=== PATIENT | male | born 1940 | race Caucasian/White ===

== ENCOUNTER → 2020-07-23 09:46 | Outpatient (BNVA) | payer MEDICARE, SELFPAY | PROVIDERS: PCP Internal Medicine; Visit Provider Urology | DX: N40.1 Benign prostatic hyperplasia with lower urinary tract symptoms (principal); N13.8 Other obstructive and reflux uropathy; R39.12 Poor urinary stream; Z79.899 Other long term (current) drug therapy | CPT/HCPCS: 81002; Q3014 ==

== ENCOUNTER → 2021-12-03 11:10 | Outpatient (BNVA) | payer MEDICARE, SELFPAY | PROVIDERS: PCP Internal Medicine; Visit Provider Urology | DX: N40.1 Benign prostatic hyperplasia with lower urinary tract symptoms (principal); N43.40 Spermatocele of epididymis, unspecified | CPT/HCPCS: 51798; 99212 ==

== ENCOUNTER → 2023-03-01 08:38 | Outpatient (BNVA) | payer MEDICARE, SELFPAY | PROVIDERS: Visit Provider Urology | DX: N40.1 Benign prostatic hyperplasia with lower urinary tract symptoms (principal); N13.8 Other obstructive and reflux uropathy; R39.12 Poor urinary stream; Z79.899 Other long term (current) drug therapy | CPT/HCPCS: 51798; 99212 ==

== ENCOUNTER 2024-02-28 08:08 | Outpatient (AMB) | payer MEDICARE, SELFPAY ==
--- NOTE | 2024-02-28 08:18 | A.OFFVIS_ITS ---
Intake Visit Reasons: 1y/PVR Intake Note: * Patient presents today for a 1yr follow-up with PVR * Meds- Finasteride * Allergies to Antibiotic- None * Blood Thinner- None * PVR- 20ml Retirement Officer Required: No Accompanied by: Self / Same As Patient Allergies No Known Allergies Allergy (Verified 02/28/24 08:18) Medication List - Last Reconciled 02/28/24 by Panchito Barreto MD atorvastatin mg PO betamethasone dipropionate 0.05% topical BID PRN finasteride 5 mg PO DAILY 90 days ibuprofen 800 mg PO TID lisinopril 30 mg PO DAILY metoprolol succinate ER 50 mg PO DAILY rivaroxaban 20 mg PO BEDTIME HPI Comments Details: Oskar is a pleasant [place] gentleman. He is a patient of Dr. Reynolds. He is seen for the following urologic conditions - lower urinary tract symptoms PVR remains low Effective bladder emptying Nocturia x1 depending on fluid intake Says he is still working Has been stable for a number of years May follow with primary care and if there is any further urologic condition can give us a call Refill finasteride Prostate/Bladder: Stable Doing well on finasteride alone. Benign prostatic hyperplasia (BPH) was diagnosed Many years . Current symptoms include Minimal . Severity of the symptoms is 3 out of 10. Associated symptoms include Associated illnesses include CAD, dyslipidemia and hypertension. . Recent labs included a PSA (prostate-specific antigen) July 2014 0.6. Investigative studies included TURP performed December 2011. Testicular/Scotal spermatocele: Imaging includes December 2015 testicular ultrasound showing right-sided spermatocele. Based on imaging and exam diagnosis is most consistent with a spermatocele, on right side. Current symptoms include none Review of Systems Const Denies chills and Denies fever(s) Card Reports no additional complaints and Denies syncope Resp Denies cough GI Denies abdominal pain and Denies heartburn Reports as per HPI and Denies change in libido Neuro Denies syncope Psych Denies change in libido Endo Denies change in libido Physical Exam Const General: cooperative, healthy appearing, comfortable and no acute distress Orientation/consciousness: patient oriented x3 HEENT Face and sinus: Yes normal facial exam Mouth: moist mucous membranes Neck Neck: Yes normal visual inspection, Yes full ROM and Yes trachea midline Chest Chest palpation & inspection: normal inspection of the chest Resp Effort & Inspection: normal respiratory effort, able to speak in complete sentences and no respiratory distress GI Inspection: Yes normal to inspection Back/Spine/Pelvis Cervical Spine: normal cervical lordosis Thoracic/Lumbar Spine: thoracic and lumbar spine normal to inspection Skin General skin exam: no rashes or lesions noted Neuro General: patient oriented x3, gait normal, tone normal and moves all extremities Extrem General: Yes normal to inspection and Yes capillary refill normal Office Procedures Post Void Residual Post Residual Void Post Void Residual (PVR): 20 [id number] Void Residual by ultrasound Assessment & Plan Assessment & Plan (1) BPH loc w urin obs/LUTS: Comment: Prior TURP 2011, response to finasteride currently, last PSA 2014 0.6 Code(s): N40.1 - Benign prostatic hyperplasia with lower urinary tract symptoms Category: Medical Plan P.r.n. follow-up Orders: Orders AMB Post Void Residual by ultrasound Today N40.1 - Benign prostatic hyperplasia with lower urinary tract symptoms Patient Instructions: Imaging studies, laboratory and physical exam results were discussed and reviewed in detail. No major barriers to patient understanding were identified. An opportunity to ask questions regarding the treatment plan was provided. All questions were answered. The patient expressed understanding and agreement with the above treatment plan. The patient is aware they should contact our office by phone for worsening of their current condition or the appearance of new urologic symptoms. Compliance is encouraged with any medications and followup testing that is ordered. It is a privilege to participate in the urologic care of your patient. If you have any questions or concerns regarding treatment for the above conditions, or other urologic issues, please do not hesitate to contact me. The office telephone contact is [phone]. This note is constructed using voice recognition software. While every effort has been made to ensure accuracy telemarketing supervisor errors may have been included. Yours sincerely, Dr Panchito Barreto MD, [facility] - Urology Providers of Expert, Compassionate Care for the Genitourinary System Coding Level of Care Code Est Pt Level 4 (80818) Diagnoses BPH loc w urin obs/LUTS N40.1 CPT Codes Post Residual Void - PVR CPT Code: [id number] Void Residual by ultrasound ([id number])
== END 2024-02-28 08:54 | disposition home or self-care (01) ==
PROVIDERS: PCP Internal Medicine; Visit Provider Urology
DX: N40.1 Benign prostatic hyperplasia with lower urinary tract symptoms (principal)
CPT/HCPCS: 99213

== ENCOUNTER → 2024-02-28 08:08 | Outpatient (BNVA) | payer MEDICARE, SELFPAY | PROVIDERS: PCP Internal Medicine; Visit Provider Urology | DX: N40.1 Benign prostatic hyperplasia with lower urinary tract symptoms (principal); R35.1 Nocturia | CPT/HCPCS: 51798; 99212 ==